=== PATIENT | female | born 1985 | race Caucasian/White ===

== ENCOUNTER 2020-05-06 00:33 | Inpatient (IN) ==
[2020-05-06] MEDS ORDERED: LACTATED RINGER'S 1,000 ML IV PRN ×2 (01:17→15:07)
[2020-05-06] MEDS ORDERED: OXYTOCIN 30 UNITS/500 ML BAG IV PRN ×3 (01:17→12:04)
[2020-05-06 01:26] LABS: Basophils # (auto) 0.01 K/uL (0-0.2); Basophils % (auto) 0.1 %; Eosinophils # (auto) 0.33 K/uL (0-0.5); Eosinophils % (auto) 2.8 %; Hematocrit (blood only) 32.2 % (37-47); Immature Granulocytes # (auto) 0.02 K/uL (0.00-0.02); Immature Granulocytes % (auto) 0.2 %; Lymphocytes # (auto) 2.22 K/uL (1.2-3.4); Mean Corpuscular Hemoglobin 27.9 pg (25-34); Mean Corpuscular Volume 81.7 fL (80-100); Mean Platelet Volume 10.6 fL (7.4-10.4); Monocytes # (auto) 0.91 K/uL (0.11-0.59); Monocytes % (auto) 7.8 %; Neutrophils # (auto) 8.21 K/uL (1.4-6.5); Neutrophils % (auto) 70.1 %; Platelet Count 167 K/uL (130-400); RDW Coefficient of Variation 12.2 % (11.5-14.5); RDW Standard Deviation 35.8 fL (36.4-46.3); Red Blood Count 3.94 M/uL (4.2-5.4)
--- NOTE | 2020-05-06 01:33 | History & Physical Report ---
Date of Service May 06, 2020 Assessment & Plan (1) Spontaneous rupture of amniotic membranes: Patient is a 34-year-old G2 [id number] female at 40 weeks and 3 days of gestation with spontaneous rupture of membranes at term. Vital signs stable afebrile In early labor with no regular contractions. HIV disease affecting , viral load unavailable in the [employer] system , I was able to speak with her Dr in [place] and was told to be "undetectable" Recommended IV Zidovudine during labor until delivery On Subutex maintenance therapy Smoker Plan to admit, monitor, Zidovudine IV, augment with pitocin if no cervical change after 3 hours from Zidovudine All questions were answered. (2) HIV disease affecting in third trimester: History of Present Illness Chief Complaint: Leaking of amniotic fluids Primary Care Provider: Facundo Gordon MD Patient is a 34-year-old -0-0-2 at 40 weeks and 3 days of gestation who has been leaking urine amniotic fluid since 10:30 PM last night. It was a gush of clear fluid and has been leaking large amount of clear fluid since then. No contractions, abdominal pain nor discomfort. No vaginal bleeding, fever chills, nausea vomiting, epigastric or right upper quadrant pain. She feels baby has been moving normally. Her has been complicated by 1) HIV positive, since 2018, she has been [place] and [place]. She has ID/ HIV specialist at [place], [place] CD4 counts was 800 2 weeks ago and she was told to be able to have vaginal by her doctor. We did not have viral load records but she called her dr and I spoke with her and she confirmed her viral load to be undetectable. 2) hepatitis C virus antibody positive in 2019 and negative in 2019 and normal liver enzymes. 3) Has been on Subutex maintenance therapy 4) Smoker 5)h/o drug use Allergies Allergy/AdvReac Type Severity Reaction Status Date / Time No Known Allergies Allergy Unverified 04/15/19 20:01 Home Medications Medication Instructions Recorded Confirmed Type ugwdsqjnb-rcmbqjbf-zywxihq ala 1 tab PO DAILY 04/15/19 04/15/19 History [Biktarvy] buprenorphine-naloxone 1 tab SUBLINGUAL TID 04/15/19 05/06/20 History emtricitabine-tenofovir alafen 1 tab PO BID 05/06/20 05/06/20 History [Descovy] Patient History Medical History No known health problems Family History Other No significant family history Social History Smoking Status: Current every day smoker Cigarettes Per Day: vaping; Hx Alcohol Use: No Hx Substance Use: Yes Substance Use Type Other:: 10+ years ago Preferred Language: [place] Island[place] Communication Ability: Effective Registered Sales Assistant Required: No Beliefs That Will Affect Care: None marital status: Single Current Living Situation: Family current occupational status: employed Other Information That Helps Us Care for You: No Feels Safe at Home: Yes Safety Concerns: Feels Safe At This Time Assistive Devices: None OB History FT 's in 2010 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 No h/o Chlamydia, GC nor HSV Review of Systems All systems reviewed & are unremarkable except as noted in HPI & below Physical Exam Constitutional: WD/WN, vitals as above well developed Comfortable, NAD Gastrointestinal (Abdomen): normal bowel sounds, soft, nontender, no hepatosplenomegaly (Gravid) Genitourinary: normal external appearance (soaked pads, Nitrazine) Manual OB Exam: + cervical dilation 2 cm, + cervical effacement 60% and + station -2 OB Exam Monitor Tracing: + external uterine monitor used and + category I Results & Data ([facility]) Vital Signs (Past 12 Hours) Vital Signs Pulse BP 05/06/20 00:49 75 126/74
[2020-05-06 01:44] LABS: Mean Corpuscular Hgb Conc 34.2 g/dL (32-36)
[2020-05-06] MEDS ORDERED: ZIDOVUDINE IV STA (01:45)
[2020-05-06] MEDS ORDERED: DEXTROSE 5% IV STA (01:45)
[2020-05-06 01:59] LABS: Albumin Level 2.8 gm/dl (3.4-5.0); BUN Creatinine Ratio 23.4 (10-20); Calcium 8.1 mg/dl (8.5-10.1); Creatinine Clr Calc Pharmacy 118.1 ml/min; Est GFR (African American) 141.4
[2020-05-06 02:02] LABS: Albumin Globulin Ratio 0.8 (0.9-2); Bilirubin,Total 0.5 mg/dl (0.2-1); Globulin 3.4 gm/dl (2.5-4.0); Total Protein 6.2 gm/dl (6.4-8.2)
[2020-05-06] MEDS: SODIUM CHLORIDE 0.9% 1000ML 1,000 ML IV SCH ×2 (03:50→07:19)
[2020-05-06] MEDS: DEXTROSE 5% IV PRN ×2 (03:51→09:53)
[2020-05-06] MEDS: ZIDOVUDINE IV PRN ×2 (03:51→09:53)
[2020-05-06] MEDS ORDERED: BUTORPHANOL TARTRATE 1 MG/ML VIAL IV ONE (04:03)
[2020-05-06] MEDS ORDERED: BUTORPHANOL TARTRATE 1 MG/ML VIAL ONE (04:10)
[2020-05-06] MEDS ORDERED: BUPIVACAINE 0.25% 30 ML VIAL ONE (04:53)
[2020-05-06] MEDS ORDERED: SODIUM CHLORIDE 0.9% INJ 10 ML VIAL ONE (04:53)
[2020-05-06] MEDS ORDERED: ePHEDrine sulfate 50 MG/ML AMP ONE (04:53)
[2020-05-06] MEDS ORDERED: fentaNYL citrate 100 MCG/2 ML VIAL ONE (04:54)
[2020-05-06] MEDS ORDERED: fentaNYL 2MCG/ML ROPIVACAINE 1.25MG/ML 100 ML BAG EPI ONE (04:54)
--- NOTE | 2020-05-06 05:54 | Anesthesiology Consultation ---
Date of Service May 06, 2020 Assessment & Plan Chart Review Chart Review: Acceptable Risk for Labor Epidural Consults Requested none History Height/Weight Height: 5 ft 1 in Weight: 62.596 kg Allergies Allergy/AdvReac Type Severity Reaction Status Date / Time No Known Allergies Allergy Unverified 04/15/19 20:01 Medications Home Medications Medication Instructions Recorded Confirmed Last Taken odkydsbnm-xszgkpkl-tpqugfs ala 1 tab PO DAILY 04/15/19 04/15/19 Unknown [Biktarvy] buprenorphine-naloxone 1 tab SUBLINGUAL TID 04/15/19 05/06/20 05/05/20 20:00 emtricitabine-tenofovir alafen 1 tab PO BID 05/06/20 05/06/20 05/05/20 20:00 [Descovy] Active Medications Generic Name Dose Route Start Last Admin Trade Name Freq PRN Reason Stop Dose Admin Zidovudine 400 mg/ Dextrose 140 mls @ 21.909 mls/hr 05/06/20 02:30 05/06/20 03:51 IV 06/05/20 02:29 1 mg/kg/hr Q6H PRN 21.9 mls/hr UNTIL DELIVERY Administration 1 MG/KG/HR Sodium Chloride 1,000 mls @ 125 mls/hr 05/06/20 03:45 05/06/20 05:00 Nss 1000ml IV 06/05/20 03:44 125 mls/hr .Q8H ASHLEY Infusion Past Medical History Medical History No known health problems Past Family History Family History Other No significant family history Social History Smoking Status: Current every day smoker tobacco type: e-cigarettes Smoking cigarettes per day: vaping Hx Alcohol Use: No Hx Substance Use: Yes substance use type: painkillers Substance Use Type Other:: 10+ years ago Physical Exam Vital Signs Last Vital Signs Temp 36.8 C 05/06/20 05:02 Pulse 81 05/06/20 05:52 Resp 18 05/06/20 05:02 BP 108/51 L 05/06/20 05:52 Pulse Ox 97 05/06/20 05:52 Testing Laboratory Results 05/06/20 01:09 05/06/20 01:09 Blood Type O Positive 05/06/20 01:09 Antibody Screen NEGATIVE 05/06/20 01:09
[2020-05-06] MEDS ORDERED: ePHEDrine sulfate 50 MG/ML AMP IV PRN (05:56)
[2020-05-06] MEDS ORDERED: NALOXONE HCL 1 MG in SODIUM CHLORIDE 0.9% 1000ML 1,000 ML IV PRN (05:56)
[2020-05-06] MEDS ORDERED: diphenhydrAMINE 50 MG/ML VIAL IV PRN (05:56)
[2020-05-06] MEDS ORDERED: fentaNYL 2MCG/ML ROPIVACAINE 1.25MG/ML 100 ML BAG EPI PRN (05:56)
[2020-05-06] MEDS ORDERED: NALOXONE HCL 0.4 MG/1 ML VIAL/CARP IV PRN (05:56)
[2020-05-06] MEDS ORDERED: SODIUM CHLORIDE 0.9% 1000ML 1,000 ML IV SCH (06:00)
--- NOTE | 2020-05-06 07:05 | Obstetrical Progress Note ---
Date of Service May 06, 2020 Assessment & Plan Admission and Anticipated Discharge Date Admission Date: May 06, 2020 Subjective I was called that patient is having anxiety attack Patient is sitting in bed and trying to get comfortable No pain, epidural is helping VSS Afebrile She states she wapes every day all day and last one was before she came to hospital last night She is due for her morning Subutex dose I recommended psychiatry consultation but she declined She wants to rest /sleep FHR 130's, not registering well when she is sitting IV Ziodvudine is going Will start Pitocin when able to monitor continuously Results & Data ([facility]) Vital Signs (Past 12 Hours) Vital Signs Temp Pulse Resp BP Pulse Ox 05/06/20 06:57 85 97 05/06/20 06:52 78 98 05/06/20 06:51 94 H 105/57 L 05/06/20 06:47 73 97 05/06/20 06:42 89 96 05/06/20 06:37 86 124/56 L 98 05/06/20 06:32 112 H 99 05/06/20 06:27 106 H 97 05/06/20 06:22 87 96 05/06/20 06:17 79 96 05/06/20 06:14 83 107/52 L 05/06/20 06:12 70 96 05/06/20 06:07 82 98 05/06/20 06:02 76 97 05/06/20 05:57 80 96 05/06/20 05:54 83 159/65 H 05/06/20 05:52 81 108/51 L 97 05/06/20 05:50 77 104/51 L 05/06/20 05:48 83 103/53 L 05/06/20 05:47 85 96 05/06/20 05:45 82 20 106/57 L 05/06/20 05:44 85 100/51 L 05/06/20 05:42 87 96 05/06/20 05:41 81 96/57 L 05/06/20 05:38 80 116/59 L 05/06/20 05:37 81 97 05/06/20 05:35 150 H 128/67 05/06/20 05:34 85 132/75 05/06/20 05:32 84 98 05/06/20 05:27 91 H 98 12/02/20 05:22 87 97 05/06/20 05:11 85 96 05/06/20 05:06 81 97 05/06/20 05:02 36.8 C 75 18 109/63 05/06/20 02:50 36.7 C 05/06/20 00:50 36.8 C 75 18 126/74 05/06/20 00:49 75 126/74
[2020-05-06] MEDS: buprenorphine HCL 8 MG SUBL SL SCH ×3 (07:33→22:18)
[2020-05-06] MEDS ORDERED: oxyCODONE/ACETAMINOPHEN 5mg/325mg TAB PO PRN ×2 (09:22)
[2020-05-06] MEDS ORDERED: ONDANSETRON INJ 2 MG/ML 2 ML VIAL IV PRN (09:22)
--- NOTE | 2020-05-06 09:22 | Post Operative Brief Note ---
Immediate Post Op Note v1 Date of Surgery May 06, 2020 I identified the patient and participated in the time-out.: Yes Procedure dilation and evacuation of uterus under ultrasound guidance Surgeon Sudhir Pagan MD Messenger Copy none Estimated Blood Loss 200 Findings Consistent with Post-Op Diagnosis
--- NOTE | 2020-05-06 10:42 | Progress Note ---
Date of Service May 06, 2020 Assessment & Plan Admission and Anticipated Discharge Date Admission Date: May 06, 2020 Subjective Pt doing well SROM @ 13;00HRs FHR ; poor quality tracing due to body habitus VE; 5/80/-2 IUP and scalp placed Pit 4MU continue labor induction Results & Data ([facility]) Vital Signs (Past 12 Hours) Vital Signs Temp Pulse Resp BP Pulse Ox 05/06/20 10:37 84 95 05/06/20 10:34 73 89/50 L 05/06/20 10:32 75 95 05/06/20 10:29 18 05/06/20 10:27 77 95 05/06/20 10:22 74 95 05/06/20 10:20 70 87/48 L 05/06/20 10:17 84 95 05/06/20 10:12 73 95 05/06/20 10:11 74 94 05/06/20 10:07 74 95 05/06/20 10:05 73 89/53 L 05/06/20 10:02 76 95 05/06/20 09:59 74 20 94 05/06/20 09:57 76 95 05/06/20 09:52 76 95 05/06/20 09:49 76 88/53 L 05/06/20 09:48 76 94 05/06/20 09:47 75 95 05/06/20 09:42 75 96 05/06/20 09:37 76 96 05/06/20 09:34 71 90/50 L 05/06/20 09:32 78 95 05/06/20 09:29 84 20 94 05/06/20 09:27 77 95 05/06/20 09:22 75 96 05/06/20 09:20 85 94 05/06/20 09:19 74 89/50 L 05/06/20 09:17 77 96 05/06/20 09:12 86 96 05/06/20 09:07 94 H 97 05/06/20 09:04 78 94/55 L 94 05/06/20 09:02 77 95 05/06/20 08:59 37.5 C 20 05/06/20 08:57 77 96 05/06/20 08:52 109 H 96 05/06/20 08:49 83 88/52 L 05/06/20 08:47 86 96 05/06/20 08:42 97 H 97 05/06/20 08:37 83 96 05/06/20 08:34 92 H 91/55 L 05/06/20 08:32 93 H 96 05/06/20 08:29 18 05/06/20 08:27 90 96 05/06/20 08:22 79 96 05/06/20 08:19 90 94/56 L 05/06/20 08:17 90 97 05/06/20 08:12 110 H 98 05/06/20 08:07 80 97 05/06/20 08:04 82 101/58 L 05/06/20 08:02 80 96 05/06/20 07:59 20 05/06/20 07:57 84 96 05/06/20 07:52 77 97 05/06/20 07:49 79 99/57 L 05/06/20 07:47 75 97 05/06/20 07:42 93 H 99 05/06/20 07:37 94 H 97 05/06/20 07:34 83 104/62 05/06/20 07:32 82 97 05/06/20 07:29 20 05/06/20 07:27 102 H 98 05/06/20 07:23 81 102/53 L 05/06/20 07:22 82 99 05/06/20 07:17 87 99 05/06/20 07:15 36.6 C 20 05/06/20 07:12 120 H 100 05/06/20 07:07 117 H 98 05/06/20 07:05 98 H 117/67 05/06/20 07:02 84 97 05/06/20 06:57 85 97 05/06/20 06:52 78 98 05/06/20 06:51 94 H 105/57 L 05/06/20 06:47 73 97 05/06/20 06:42 89 96 05/06/20 06:37 86 124/56 L 98 05/06/20 06:32 112 H 99 05/06/20 06:27 106 H 97 05/06/20 06:22 87 96 05/06/20 06:17 79 96 05/06/20 06:14 83 107/52 L 05/06/20 06:12 70 96 05/06/20 06:07 82 98 05/06/20 06:02 76 97 05/06/20 05:57 80 96 05/06/20 05:54 83 159/65 H 05/06/20 05:52 81 108/51 L 97 05/06/20 05:50 77 104/51 L 05/06/20 05:48 83 103/53 L 05/06/20 05:47 85 96 05/06/20 05:45 82 20 106/57 L 05/06/20 05:44 85 100/51 L 05/06/20 05:42 87 96 05/06/20 05:41 81 96/57 L 05/06/20 05:38 80 116/59 L 05/06/20 05:37 81 97 05/06/20 05:35 150 H 128/67 05/06/20 05:34 85 132/75 05/06/20 05:32 84 98 05/06/20 05:27 91 H 98 05/06/20 05:22 87 97 05/06/20 05:11 85 96 05/06/20 05:06 81 97 05/06/20 05:02 36.8 C 75 18 109/63 05/06/20 02:50 36.7 C 05/06/20 00:50 36.8 C 75 18 126/74 05/06/20 00:49 75 126/74
[2020-05-06 10:56] LABS: Amphetamines+Metham, Urine Neg (Neg); Barbiturates, Urine Neg (Neg); Benzodiazepine, Urine Neg (Neg); Cocaine, Urine Neg (Neg); MDMA (Ecstacy), Urine Neg (Neg); Methadone, Urine Neg (Neg); Opiate, Urine Neg (Neg); Phencyclidine, Urine Neg (Neg)
[2020-05-06] MEDS ORDERED: bisacodyL 10 MG SUPP PR PRN ×2 (12:04→15:09)
[2020-05-06] MEDS ORDERED: BENZOCAINE 20% AER SPR 82.5 GM CAN EXT PRN ×2 (12:04→15:10)
[2020-05-06] MEDS ORDERED: SUPERCREAM 0.870% 15 GM JAR EXT PRN ×2 (12:04→15:10)
[2020-05-06] MEDS ORDERED: ACETAMINOPHEN 325 MG TAB PO PRN ×2 (12:04→15:08)
[2020-05-06] MEDS ORDERED: DIPHTHERIA/TETANUS/PERTUSSIS 0.5 ML SYR/VIAL IM ONE (12:04)
[2020-05-06] MEDS ORDERED: HYDROCORTISONE ACETATE 25 MG SUPP PR PRN ×2 (12:04→15:10)
[2020-05-06] MEDS ORDERED: IBUPROFEN 600 MG TAB PO PRN (12:04)
--- NOTE | 2020-05-06 12:22 | Delivery Summary ---
DATE OF OPERATION: 05/06/2020 The patient delivered a live in left occiput anterior presentation. There was nuchal cord, which was easily reduced. was delivered, placed on mother's abdomen. Delayed cord clamp was performed after 1 minute. Cord blood was obtained. Placenta was spontaneously delivered. Inspection of the placenta shows a normal-looking placenta with 3-vessel cord. Estimated blood loss is 400 mL. Inspection of the perineum showed no laceration or tears. Baby and mother are hemodynamically stable in the recovery. All instruments were removed from the vagina and accounted for x2 including sponges, needles and retractors. I attest to the content of the Intraoperative Record and any orders documented therein. Any exceptions are noted below. MTDD
--- NOTE | 2020-05-06 14:05 | Anesthesia Procedure Note ---
Date of Service May 06, 2020 Anesthesia Post Epidural Note Vital Signs Vital Signs: Temp Pulse Resp BP Pulse Ox 36.5 C 80 20 97/54 L 96 05/06/20 13:59 05/06/20 14:00 05/06/20 13:59 05/06/20 14:00 05/06/20 11:52 Pain Intensity Abdomen: Pain Intensity: 0 Notes Mental Status: alert / awake / arousable and participated in evaluation Nausea / Vomiting: adequately controlled Pain: adequately controlled Airway Patency, RR, SpO2: stable & adequate BP & HR: stable & adequate Hydration State: stable & adequate Neuraxial Anesthesia: was administered and sensory block is resolving Anesthetic Complications: no major complications apparent and Pt Satisfied with anesthetic care Epidural: Removed without complications and With tip intact
[2020-05-06] MEDS ORDERED: Nursing to Pharmacy Communication SCH (15:15)
[2020-05-06] MEDS: IBUPROFEN 600 MG TAB PO PRN (15:19)
[2020-05-06] MEDS ORDERED: bisacodyL 5 MG TABEC PO SCH (20:00)
[2020-05-06] MEDS ORDERED: DOCUSATE SODIUM 100 MG CAP PO SCH (21:00)
[2020-05-06] MEDS: DOCUSATE SODIUM 100 MG CAP PO SCH (22:18)
[2020-05-07] MEDS: IBUPROFEN 600 MG TAB PO PRN ×4 (00:57→19:54)
[2020-05-07] MEDS: RALTEGRAVIR POTASSIUM 400 MG TAB PO SCH ×3 (02:01→19:56)
[2020-05-07] MEDS: buprenorphine HCL 8 MG SUBL SL SCH ×3 (05:57→21:58)
[2020-05-07] MEDS ORDERED: PRENATAL VITAMIN 1 TAB PO SCH (08:00)
[2020-05-07] MEDS: PRENATAL VITAMIN 1 TAB PO SCH (08:55)
[2020-05-07] MEDS: DOCUSATE SODIUM 100 MG CAP PO SCH ×2 (08:55→19:56)
--- NOTE | 2020-05-07 10:14 | Obstetrical Progress Note ---
Date of Service May 07, 2020 PPD#1 Assessment & Plan Admission and Anticipated Discharge Date Admission Date: May 06, 2020 Physical Exam Constitutional: WD/WN, vitals as above comfortable abdomen soft and non- tender fundus firm no edema neg Demetrius's for d/c in AM Results & Data ([facility]) Vital Signs (Past 12 Hours) Vital Signs Temp Pulse Resp BP Pulse Ox 05/07/20 08:00 36.5 C 54 L 16 90/50 L 98 05/07/20 04:30 36.4 C L 67 18 103/61 05/07/20 00:45 36.5 C 64 18 102/63 Laboratory Results Laboratory Results - last 72 hr 05/06/20 05/06/20 05/06/20 01:09 01:09 01:09 WBC 11.70 H RBC 3.94 L Hgb 11.0 L Hct 32.2 L MCV 81.7 MCH 27.9 MCHC 34.2 RDW Std Deviation 35.8 L RDW Coeff of Maurizio 12.2 Plt Count 167 MPV 10.6 H Immature Gran % (Auto) 0.2 Neut % (Auto) 70.1 Lymph % (Auto) 19.0 [place] % (Auto) 7.8 Eos % (Auto) 2.8 Baso % (Auto) 0.1 Neut # (Auto) 8.21 H Lymph # (Auto) 2.22 [place] # (Auto) 0.91 H Eos # (Auto) 0.33 Baso # (Auto) 0.01 Immature Gran # (Auto) 0.02 Sodium 137 Potassium 4.0 Chloride 107 Carbon Dioxide 21 Anion Gap 9.0 BUN 14 Creatinine 0.58 L Est Cr Clr Drug Dosing 118.1 Est GFR ( Amer) 141.4 Est GFR (Non-Af Amer) 122.0 BUN/Creatinine Ratio 23.4 H Glucose 83 Calcium 8.1 L Total Bilirubin 0.5 AST 15 ALT 12 Alkaline Phosphatase 177 H Total Protein 6.2 L Albumin 2.8 L Globulin 3.4 Albumin/Globulin Ratio 0.8 L Ur Butalbital Confirm Urine Opiates Screen U Codeine Confrm GC/MS Ur Morphine (GC/MS) Ur Hydrocodone (GC/MS) U Norhydrocodone Conf Ur Oxycodone Screen U Noroxycodone Confirm Ur Oxycodone GC/MS U Oxymorphone GC/MS EDDP Confirm Ur Methadone, Qual Ur Methadone Ur Hydromorphone (GC/MS) Urine Barbiturates Ur Phencyclidine Scrn Ur Phencyclidine (PCP) Urine PCP Confirm Ur Amphetamines Screen U Amphetamines Confirm U Amphetamin/Meth Scrn Methamphetamine GC/MS MDMA (Ecstasy) Screen Ur Amobarbital GC/MS U Pentobarbital GC/MS U Phenobarbital GC/MS U Secobarbital GC/MS U [id number]-[id number] GC/MS U Benzodiazepines Scrn U 7-Aminoclonazepam Screen Ur Nordiazepam GC/MS U OH-ethylfluraz GC/MS U Lorazepam Cnf GC/MS U Oxazepam Confm GC/MS Ur Temazepam Cnf GC/MS U a-Hydroxytriaz GC/MS U [id number]-Mbcryrcyb Urine Cocaine Ur Cocaine Metabolite U Cocaine Metab Confirm Tetrahydrocannabinol U Marijuana (THC) Screen Drug Screen Comment Hepatitis C Antibody Reference Lab Blood Type O Positive Antibody Screen NEGATIVE 05/06/20 05/06/20 05/06/20 01:09 10:00 10:00 WBC RBC Hgb Hct MCV MCH MCHC RDW Std Deviation RDW Coeff of Maurizio Plt Count MPV Immature Gran % (Auto) Neut % (Auto) Lymph % (Auto) [place] % (Auto) Eos % (Auto) Baso % (Auto) Neut # (Auto) Lymph # (Auto) [place] # (Auto) Eos # (Auto) Baso # (Auto) Immature Gran # (Auto) Sodium Potassium Chloride Carbon Dioxide Anion Gap BUN Creatinine Est Cr Clr Drug Dosing Est GFR ( Amer) Est GFR (Non-Af Amer) BUN/Creatinine Ratio Glucose Calcium Total Bilirubin AST ALT Alkaline Phosphatase Total Protein Albumin Globulin Albumin/Globulin Ratio Ur Butalbital Confirm Cancelled Urine Opiates Screen Cancelled Neg U Codeine Confrm GC/MS Cancelled Ur Morphine (GC/MS) Cancelled Ur Hydrocodone (GC/MS) Cancelled U Norhydrocodone Conf Cancelled Ur Oxycodone Screen Cancelled U Noroxycodone Confirm Cancelled Ur Oxycodone GC/MS Cancelled U Oxymorphone GC/MS Cancelled EDDP Confirm Cancelled Ur Methadone, Qual Cancelled Neg Ur Methadone Cancelled Ur Hydromorphone (GC/MS) Cancelled Urine Barbiturates Cancelled Neg Ur Phencyclidine Scrn Cancelled Ur Phencyclidine (PCP) Neg Urine PCP Confirm Cancelled Ur Amphetamines Screen Cancelled U Amphetamines Confirm Cancelled U Amphetamin/Meth Scrn Neg Methamphetamine GC/MS Cancelled MDMA (Ecstasy) Screen Neg Ur Amobarbital GC/MS Cancelled U Pentobarbital GC/MS Cancelled U Phenobarbital GC/MS Cancelled U Secobarbital GC/MS Cancelled U e-KR-Uumrwkhkk GC/MS Cancelled U Benzodiazepines Scrn Cancelled Neg U 7-Aminoclonazepam Screen Cancelled Ur Nordiazepam GC/MS Cancelled U [place]-ethylfluraz GC/MS Cancelled U Lorazepam Cnf GC/MS Cancelled U Oxazepam Confm GC/MS Cancelled Ur Temazepam Cnf GC/MS Cancelled U a-Hydroxytriaz GC/MS Cancelled U b-GL-Pnpawksrf Cancelled Urine Cocaine Cancelled Ur Cocaine Metabolite Neg U Cocaine Metab Confirm Cancelled Tetrahydrocannabinol Cancelled U Marijuana (THC) Screen Cancelled Neg Drug Screen Comment Cancelled Hepatitis C Antibody Prelim Pos A Reference Lab Cancelled Blood Type Antibody Screen
[2020-05-07] MEDS ORDERED: bisacodyL 5 MG TABEC PO SCH ×2 (20:00)
[2020-05-08] MEDS: buprenorphine HCL 8 MG SUBL SL SCH ×2 (06:19→13:57)
--- NOTE | 2020-05-08 07:52 | Obstetrical Progress Note ---
Date of Service May 08, 2020 Assessment & Plan Admission and Anticipated Discharge Date Admission Date: May 06, 2020 Subjective Patient is seen and examined. She feels well, no complaints. Ambulating without dizziness Voiding without difficulty Tolerating regular diet with out N&V Bleeding is minimal No fever/ chills/ CP/ SOB/ N&V/ Leg pain Bottle feeding without problems Vital Signs Temp Pulse Resp BP Pulse Ox 05/07/20 23:35 36.6 C 62 16 110/71 98 05/07/20 19:25 36.5 C 70 18 117/63 99 05/07/20 15:20 36.6 C 57 L 18 122/76 98 05/07/20 08:00 36.5 C 54 L 16 90/50 L 98 Lab Results 05/06/20 05/06/20 05/06/20 Range/Units 01:09 01:09 01:09 WBC 11.70 H (4.8-10.8) K/uL RBC 3.94 L (4.2-5.4) M/uL Hgb 11.0 L (12.0-16.0) g/dL Hct 32.2 L (37-47) % MCV 81.7 (80-100) fL MCH 27.9 (25-34) pg MCHC 34.2 (32-36) g/dL RDW Std Deviation 35.8 L (36.4-46.3) fL RDW Coeff of Maurizio 12.2 (11.5-14.5) % Plt Count 167 (130-400) K/uL MPV 10.6 H (7.4-10.4) fL Immature Gran % (Auto) 0.2 % Neut % (Auto) 70.1 % Lymph % (Auto) 19.0 % [place] % (Auto) 7.8 % Eos % (Auto) 2.8 % Baso % (Auto) 0.1 % Neut # (Auto) 8.21 H (1.4-6.5) K/uL Lymph # (Auto) 2.22 (1.2-3.4) K/uL [place] # (Auto) 0.91 H (0.11-0.59) K/uL Eos # (Auto) 0.33 (0-0.5) K/uL Baso # (Auto) 0.01 (0-0.2) K/uL Immature Gran # (Auto) 0.02 (0.00-0.02) K/uL Sodium 137 (136-145) mmol/L Potassium 4.0 (3.5-5.1) mmol/L Chloride 107 (98-107) mmol/L Carbon Dioxide 21 (21-32) mmol/L Anion Gap 9.0 (3-11) BUN 14 (7-18) mg/dl Creatinine 0.58 L (0.6-1.2) mg/dl Est Cr Clr Drug Dosing 118.1 ml/min Est GFR ( Amer) 141.4 Est GFR (Non-Af Amer) 122.0 BUN/Creatinine Ratio 23.4 H (10-20) Glucose 83 (70-99) mg/dl Calcium 8.1 L (8.5-10.1) mg/dl Total Bilirubin 0.5 (0.2-1) mg/dl AST 15 (15-37) U/L ALT 12 (12-78) U/L Alkaline Phosphatase 177 H (45-117) U/L Total Protein 6.2 L (6.4-8.2) gm/dl Albumin 2.8 L (3.4-5.0) gm/dl Globulin 3.4 (2.5-4.0) gm/dl Albumin/Globulin Ratio 0.8 L (0.9-2) Ur Butalbital Confirm Urine Opiates Screen U Codeine Confrm GC/MS Ur Morphine (GC/MS) Ur Hydrocodone (GC/MS) U Norhydrocodone Conf Ur Oxycodone Screen U Noroxycodone Confirm Ur Oxycodone GC/MS U Oxymorphone GC/MS EDDP Confirm Ur Methadone, Qual Ur Methadone Ur Hydromorphone (GC/MS) Urine Barbiturates Ur Phencyclidine Scrn Ur Phencyclidine (PCP) (Neg) Urine PCP Confirm Ur Amphetamines Screen U Amphetamines Confirm U Amphetamin/Meth Scrn (Neg) Methamphetamine GC/MS MDMA (Ecstasy) Screen (Neg) Ur Amobarbital GC/MS U Pentobarbital GC/MS U Phenobarbital GC/MS U Secobarbital GC/MS U s-DH-Jhjxdqbwi GC/MS U Benzodiazepines Scrn U 7-Aminoclonazepam Screen Ur Nordiazepam GC/MS U OH-ethylfluraz GC/MS U Lorazepam Cnf GC/MS U Oxazepam Confm GC/MS Ur Temazepam Cnf GC/MS U a-Hydroxytriaz GC/MS U n-PS-Erqpjojid Urine Cocaine Ur Cocaine Metabolite (Neg) U Cocaine Metab Confirm Tetrahydrocannabinol U Marijuana (THC) Screen Drug Screen Comment Hepatitis C Antibody (Neg) Reference Lab Blood Type O Positive Antibody Screen NEGATIVE 05/06/20 05/06/20 05/06/20 Range/Units 01:09 10:00 10:00 WBC (4.8-10.8) K/uL RBC (4.2-5.4) M/uL Hgb (12.0-16.0) g/dL Hct (37-47) % MCV (80-100) fL MCH (25-34) pg MCHC (32-36) g/dL RDW Std Deviation (36.4-46.3) fL RDW Coeff of Maurizio (11.5-14.5) % Plt Count (130-400) K/uL MPV (7.4-10.4) fL Immature Gran % (Auto) % Neut % (Auto) % Lymph % (Auto) % [place] % (Auto) % Eos % (Auto) % Baso % (Auto) % Neut # (Auto) (1.4-6.5) K/uL Lymph # (Auto) (1.2-3.4) K/uL [place] # (Auto) (0.11-0.59) K/uL Eos # (Auto) (0-0.5) K/uL Baso # (Auto) (0-0.2) K/uL Immature Gran # (Auto) (0.00-0.02) K/uL Sodium (136-145) mmol/L Potassium (3.5-5.1) mmol/L Chloride (98-107) mmol/L Carbon Dioxide (21-32) mmol/L Anion Gap (3-11) BUN (7-18) mg/dl Creatinine (0.6-1.2) mg/dl Est Cr Clr Drug Dosing ml/min Est GFR ( Amer) Est GFR (Non-Af Amer) BUN/Creatinine Ratio (10-20) Glucose (70-99) mg/dl Calcium (8.5-10.1) mg/dl Total Bilirubin (0.2-1) mg/dl AST (15-37) U/L ALT (12-78) U/L Alkaline Phosphatase (45-117) U/L Total Protein (6.4-8.2) gm/dl Albumin (3.4-5.0) gm/dl Globulin (2.5-4.0) gm/dl Albumin/Globulin Ratio (0.9-2) Ur Butalbital Confirm Cancelled Urine Opiates Screen Cancelled Neg U Codeine Confrm GC/MS Cancelled Ur Morphine (GC/MS) Cancelled Ur Hydrocodone (GC/MS) Cancelled U Norhydrocodone Conf Cancelled Ur Oxycodone Screen Cancelled U Noroxycodone Confirm Cancelled Ur Oxycodone GC/MS Cancelled U Oxymorphone GC/MS Cancelled EDDP Confirm Cancelled Ur Methadone, Qual Cancelled Neg Ur Methadone Cancelled Ur Hydromorphone (GC/MS) Cancelled Urine Barbiturates Cancelled Neg Ur Phencyclidine Scrn Cancelled Ur Phencyclidine (PCP) Neg (Neg) Urine PCP Confirm Cancelled Ur Amphetamines Screen Cancelled U Amphetamines Confirm Cancelled U Amphetamin/Meth Scrn Neg (Neg) Methamphetamine GC/MS Cancelled MDMA (Ecstasy) Screen Neg (Neg) Ur Amobarbital GC/MS Cancelled U Pentobarbital GC/MS Cancelled U Phenobarbital GC/MS Cancelled U Secobarbital GC/MS Cancelled U v-PA-Sijpngjrf GC/MS Cancelled U Benzodiazepines Scrn Cancelled Neg U 7-Aminoclonazepam Screen Cancelled Ur Nordiazepam GC/MS Cancelled U OH-ethylfluraz GC/MS Cancelled U Lorazepam Cnf GC/MS Cancelled U Oxazepam Confm GC/MS Cancelled Ur Temazepam Cnf GC/MS Cancelled U a-Hydroxytriaz GC/MS Cancelled U x-SB-Lavjoubea Cancelled Urine Cocaine Cancelled Ur Cocaine Metabolite Neg (Neg) U Cocaine Metab Confirm Cancelled Tetrahydrocannabinol Cancelled U Marijuana (THC) Screen Cancelled Neg Drug Screen Comment Cancelled Hepatitis C Antibody Prelim Pos A (Neg) Reference Lab Cancelled Blood Type Antibody Screen PE: General: Alert, orientedx3, NAD Abd: soft, NT, fundus firm, below Umbilicus Perineum intact, Lochia rubra minimal Ext; NT, no edema AP: 34 yo s/p , ppd# VSS Afebrile doing well CBC pending Continue routine care All questions were answered D/C home , f/u in office Results & Data ([facility]) Vital Signs (Past 12 Hours) Vital Signs Temp Pulse Resp BP Pulse Ox 05/07/20 23:35 36.6 C 62 16 110/71 98
[2020-05-08] MEDS ORDERED: MEASLES, MUMPS & RUBELLA VIRUS VIAL SQ ONE (08:31)
[2020-05-08] MEDS: PRENATAL VITAMIN 1 TAB PO SCH (08:48)
[2020-05-08] MEDS: DOCUSATE SODIUM 100 MG CAP PO SCH (08:48)
[2020-05-08] MEDS: IBUPROFEN 600 MG TAB PO PRN (08:49)
[2020-05-08] MEDS: RALTEGRAVIR POTASSIUM 400 MG TAB PO SCH (08:51)
[2020-05-08 09:45] LABS: Basophils # (auto) 0.03 K/uL (0-0.2); Basophils % (auto) 0.3 %; Eosinophils # (auto) 0.75 K/uL (0-0.5); Eosinophils % (auto) 6.4 %; Hematocrit (blood only) 36.9 % (37-47); Hemoglobin 12.4 g/dL (12.0-16.0); Immature Granulocytes # (auto) 0.05 K/uL (0.00-0.02); Immature Granulocytes % (auto) 0.4 %; Mean Corpuscular Hemoglobin 28.1 pg (25-34); Mean Corpuscular Hgb Conc 33.6 g/dL (32-36); Mean Corpuscular Volume 83.5 fL (80-100); Mean Platelet Volume 10.8 fL (7.4-10.4); Monocytes % (auto) 5.1 %; Neutrophils # (auto) 6.05 K/uL (1.4-6.5); Neutrophils % (auto) 51.8 %; Platelet Count 210 K/uL (130-400); RDW Coefficient of Variation 12.6 % (11.5-14.5); RDW Standard Deviation 38.3 fL (36.4-46.3); Red Blood Count 4.42 M/uL (4.2-5.4); White Blood Count 11.68 K/uL (4.8-10.8)
[2020-05-08 12:41] LABS: HIV 1 RNA PCR Copies/ML <20 NOT DETECTED copies/mL (NOT DETECTED); HIV-1 RNA Log Copies/mL <1.30 NOT DETECTED (NOT DETECTED)
== END 2020-05-08 14:05 | disposition home or self-care (01) | DRG 806 ==
LOC: OPB 00:33 → 4S1 00:39 → 4S2 14:38